=== PATIENT | male | born 1980 | race Hispanic/Latino ===

== ENCOUNTER 2020-03-28 20:55 | Emergency (ER) | payer OTHER ==
[~2020-03-28] VITALS: Ht 182.9 cm; Wt 90.7 kg
[2020-03-28 21:40] LABS: PLATELET COUNT 198 K/uL (142-355)
[2020-03-28 21:46] LABS: POTASSIUM 3.6 mmol/L (3.6-5.2); SODIUM 140 mmol/L (136-145)
[2020-03-28 23:28] VITALS: BP 127/83; TEMP 98.3
== END 2020-03-28 23:28 | disposition home or self-care (01) ==
LOC: ED 21:08
PROVIDERS: Family Medicine
DX: R07.89 Other chest pain (principal); J45.901 Unspecified asthma with (acute) exacerbation
CPT/HCPCS: 80053; 82550; 82553; 84484; 85027; 93005; 94664; 96374; 96375; 99284; J2405; J2930